=== PATIENT | female | born 1955 | race Caucasian/White ===

== ENCOUNTER 2020-08-02 13:19 | Emergency (ER) | payer MEDICAID, OTHER ==
[~2020-08-02] VITALS: Ht 157.5 cm; Wt 72.7 kg
[~2020-08-02 13:19] MED LIST: ALPR0.5T8 PO; ASPI-825 PO; FERR-89 PO; GEMF600T5 PO; LISI-622 PO; METF-960 PO
[2020-08-02] MEDS ORDERED: LIDOCAINE 1% 10 ML VIAL INJ ONE (13:45)
[2020-08-02] MEDS ORDERED: BACITRACIN 0.9 GM PACKET OINTMENT TP ONE (13:45)
[2020-08-02] MEDS ORDERED: PERTUSS(ACELL),DIPH,TET VAC/PF 0.5 ML VIAL IM ONE (14:15)
[2020-08-02 14:52] VITALS: BP 150/84
== END 2020-08-02 15:04 | disposition home or self-care (01) ==
LOC: EMS 13:19
DX: S61.210A Laceration without foreign body of right index finger without damage to nail, initial encounter (principal); W26.8XXA Contact with other sharp object(s), not elsewhere classified, initial encounter; Y93.89 Activity, other specified; Y92.89 Other specified places as the place of occurrence of the external cause; Y99.8 Other external cause status
CPT/HCPCS: 12002; 90471; 90715; 99283; J3490

== ENCOUNTER → 2023-11-24 | Emergency (ER) | payer OTHER ==
[~2023-11-24] VITALS: Ht 154.9 cm; Wt 68.2 kg
[~2023-11-24] MED LIST changes: +ALPR-707 PO; -ALPR0.5T8 PO; -FERR-89 PO; +FERR325T27 PO; +GEMF-77 PO; -GEMF600T5 PO; -LISI-622 PO; +LISI5TAB21 PO; +METF-1211 PO; -METF-960 PO
[2023-11-24 00:26] LABS: COVID AG,FIA SOURCE NASAL SWAB
[2023-11-24 00:49] LABS: INFLUENZA TYPE A NEGATIVE FOR TYPE A (NEGATIVE); INFLUENZA TYPE B NEGATIVE FOR TYPE B (NEGATIVE); SARS-COV2 (COVID) ANTIGEN,FIA Negative (Negative)
[2023-11-24 02:05] LABS: BASOPHILS % (AUTO) 0.3 % (0.0-2.0); EOSINOPHILS % (AUTO) 0.8 % (1.0-6.0); HEMATOCRIT 44.3 % (36-46); HEMOGLOBIN 14.4 g/dL (12.0-16.0); LYMPHOCYTES # (AUTO) 1.5 K/uL (1.0-4.8); LYMPHOCYTES % (AUTO) 12.1 % (22.0-44.0); MEAN CORPUSCULAR HEMOGLOBIN 28.6 pg (26.0-34.0); MEAN CORPUSCULAR HGB CONC 32.5 G/dL (31.0-37.0); MEAN CORPUSCULAR VOLUME 88 fL (80-100); MONOCYTES # (AUTO) 0.9 K/uL (0.1-1.0); MONOCYTES % (AUTO) 7.5 % (2.0-9.0); NEUTROPHILS # (AUTO) 9.8 K/uL (1.8-7.7); NEUTROPHILS % (AUTO) 79.3 % (40.0-70.0); PLATELET COUNT (AUTO) 230 K/uL (150-450); RED BLOOD CELL COUNT(AUTO) 5.02 MIL/uL (4.00-5.20); RED CELL DISTRIBUTION WIDTH 13.3 % (11.5-14.5); WHITE BLOOD COUNT (AUTO) 12.4 K/uL (4.5-11.0)
[2023-11-24 02:16] LABS: CREATININE 1.3 mg/dL (0.60-1.30)
[2023-11-24 02:22] LABS: TROPONIN I-HIGH SENSITIVITY 9 ng/L (<51)
[2023-11-24 02:23] LABS: ALBUMIN 4.1 g/dL (3.4-5.0); BILIRUBIN,TOTAL 0.6 mg/dL (0.1-1.0)
[2023-11-24] MEDS: ALPRAZolam 0.5 MG TABLET PO ONE (04:26)
[2023-11-24 04:29] VITALS: BP 132/79; PULSE 70; RESP 18; TEMP 98.3
== END | disposition still patient (30) ==
LOC: EMS 00:02
DX: F41.9 Anxiety disorder, unspecified (principal); I10 Essential (primary) hypertension; F32.A Depression, unspecified; E11.9 Type 2 diabetes mellitus without complications; Z98.890 Other specified postprocedural states; Z20.822 Contact with and (suspected) exposure to COVID-19
CPT/HCPCS: 71045; 80053; 82550; 83880; 84484; 85025; 87804; 93005; 99285; 36415-L1; 36415-TC